=== PATIENT | female | born 1935 | race Asian ===

== ENCOUNTER 2017-10-17 13:41 | Inpatient (IN) | payer OTHER ==
--- NOTE | 2017-10-17 14:04 | EDPHY ---
H & P Time Seen by Provider: 10/17/17 14:04 HPI/ROS: CHIEF COMPLAINT: Shortness of breath HISTORY OF PRESENT ILLNESS: Patient started getting symptoms about a month ago with a cough and was treated by her primary care doctor in [place] with 10 days oral Levaquin. She finished this about 10 days or 2 weeks ago. Over last week she has been getting increasingly short of breath and only has a trace residual cough. Shortness of breath is not associated with chest pain or hemoptysis or leg swelling but is severe and she can't even go up a flight of stairs over the last couple of days without stopping every 1 or 2 steps. REVIEW OF SYSTEMS: Eye: no change in vision ENT: no sore throat Cardiac: no chest pain or syncope Pulmonary: HPI Abdomen: no vomiting, diarrhea, abdominal pain Musculoskeletal: Femur fracture in June, no new leg swelling Skin: no rash Neuro: no headache Constitutional: no fever : no urinary symptoms A comprehensive 10 point review of systems is otherwise negative aside from elements mentioned in the history of present illness. PAST MEDICAL HISTORY: Femur fracture as above, negative for pulmonary or cardiac disease Social history: Nonsmoker, here with daughter in-law, visiting from [place] General Appearance: Alert and conversant, cooperative. Eyes: No scleral icterus. ENT, Mouth: Normal mucous membranes. Respiratory: Right lower lung crackles. Cardiovascular: Regular rate and rhythm. Gastrointestinal: Abdomen is soft and non tender. Neurological: Alert, face symmetric, normal motor and sensory in extremities. Skin: Warm and dry, no rashes. Musculoskeletal: No peripheral edema. Psychiatric: Not agitated. Emergency Department course/MDM: Differential includes but not limited to CHF, pneumonia, PE, anemia. Plan for labs including CBC chemistry troponin D-dimer and BNP. EKG and chest x-ray. 1510: X-ray shows multi lobar pneumonia, plan for blood cultures and respiratory panel, IV fluids and antibiotics to include ceftriaxone 1 g and azithromycin 500 mg given recent quinolone use. Admission to hospital; 88% oxygen saturation on arrival, multi lobar pneumonia, severe dyspnea on exertion with inability to walk to the bathroom or up even a single flight of stairs at this time. 1604: Lactate 1.7, does not have severe sepsis or septic shock, admission to hospital med surg floor. 1844: CT chest personally reviewed and discussed with Dr. Mesa as moderate volume left lobe PE. CT was performed for elevated D-dimer. Lovenox 1 milligram/kilogram subcu; discussed with the patient at this time. 1906: discussed with Luisa the daughter in law on the phone with patient's permission. Smoking Status: Never smoked Constitutional: Initial Vital Signs Temperature (C) 36.4 C 10/17/17 13:49 Heart Rate 100 10/17/17 13:49 Respiratory Rate 24 H 10/17/17 13:49 Blood Pressure 134/91 H 10/17/17 13:49 O2 Sat (%) 88 L 10/17/17 13:49 O2 Delivery Mode Room Air Allergies/Adverse Reactions: No Known Allergies Allergy (Unverified 10/17/17 13:49) Home Medications: Medication Instructions Recorded Acetaminophen [Tylenol 325mg (*)] 975 mg PO DAILY PRN 10/17/17 Calcium Carb W/Vit D [Calcium Carb 500 mg PO BID 10/17/17 W/Vit D 500/200 (*)] Folic Acid 0.8 mg PO DAILY 10/17/17 Lisinopril [Zestril 10 mg (*)] 10 mg PO DAILY 10/17/17 Methotrexate Sodium [Rheumatrex] 2.5 mg PO MWF 10/17/17 Multivitamins [Multivitamin (*)] 1 each PO DAILY 10/17/17 Medical Decision Making - Diagnostics EKG Interpretation: 12-lead EKG interpreted by me; official reading is in trace master. My interpretation is sinus rhythm rate 87 no ischemic changes or LVH. Imaging Results: Imaging Impressions Chest X-Ray 10/17/17 14:17 Impression: Patchy multifocal bilateral pulmonary infiltrates suspicious for multifocal pneumonia.. Imaging: Discussed imaging studies w/ casing mixer Radiologist, I viewed and interpreted images myself Differential Diagnosis: Differential diagnosis considered for shortness of breath including but not limited to pulmonary infectious process, COPD, asthma, pulmonary embolus and congestive heart failure. Consult/Admit Bed Type: [place] [id number] - Data Points Laboratory Results: Laboratory Results 10/17/17 15:55 10/17/17 15:55 10/17/17 10/17/17 10/17/17 15:55 15:55 15:55 WBC RBC Hgb Hct MCV MCH MCHC RDW Plt Count MPV Neut % (Auto) Lymph % (Auto) Letcher % (Auto) Eos % (Auto) Baso % (Auto) Nucleat RBC Rel Count Absolute Neuts (auto) Absolute Lymphs (auto) Absolute Monos (auto) Absolute Eos (auto) Absolute Basos (auto) Absolute Nucleated RBC Immature Gran % Immature Gran # VBG Lactic Acid 1.7 mmol/L mmol/L (0.7-2.1) Sodium 140 mEq/L mEq/L (135-145) Potassium 3.9 mEq/L mEq/L (3.3-5.0) Chloride 106 mEq/L mEq/L (97-110) Carbon Dioxide 25 mEq/l mEq/l (22-31) Anion Gap 9 mEq/L mEq/L (8-16) BUN 15 mg/dL mg/dL (7-23) Creatinine 0.7 mg/dL mg/dL (0.6-1.0) Estimated GFR > 60 Glucose 76 mg/dL mg/dL (70-100) Calcium 8.7 mg/dL mg/dL (8.5-10.4) Total Bilirubin 0.5 mg/dL mg/dL (0.1-1.4) Troponin I < 0.012 ng/mL ng/mL (0.000-0.034) NT-Pro-B Natriuret Pep 367 pg/mL pg/mL (0-450) Procalcitonin 0.03 ng/mL ng/mL (0.02-0.10) 10/17/17 15:55 WBC 7.24 10^3/uL 10^3/uL (3.80-9.50) RBC 4.17 10^6/uL L 10^6/uL (4.18-5.33) Hgb 12.7 g/dL g/dL (12.6-16.3) Hct 39.8 % % (38.0-47.0) MCV 95.4 fL fL (81.5-99.8) MCH 30.5 pg pg (27.9-34.1) MCHC 31.9 g/dL L g/dL (32.4-36.7) RDW 16.7 % H % (11.5-15.2) Plt Count 245 10^3/uL 10^3/uL (150-400) MPV 8.9 fL fL (8.7-11.7) Neut % (Auto) 70.5 % % (39.3-74.2) Lymph % (Auto) 16.3 % % (15.0-45.0) Letcher % (Auto) 10.8 % % (4.5-13.0) Eos % (Auto) 1.7 % % (0.6-7.6) Baso % (Auto) 0.4 % % (0.3-1.7) Nucleat RBC Rel Count 0.0 % % (0.0-0.2) Absolute Neuts (auto) 5.11 10^3/uL 10^3/uL (1.70-6.50) Absolute Lymphs (auto) 1.18 10^3/uL 10^3/uL (1.00-3.00) Absolute Monos (auto) 0.78 10^3/uL 10^3/uL (0.30-0.80) Absolute Eos (auto) 0.12 10^3/uL 10^3/uL (0.03-0.40) Absolute Basos (auto) 0.03 10^3/uL 10^3/uL (0.02-0.10) Absolute Nucleated RBC 0.00 10^3/uL 10^3/uL (0-0.01) Immature Gran % 0.3 % % (0.0-1.1) Immature Gran # 0.02 10^3/uL 10^3/uL (0.00-0.10) VBG Lactic Acid Sodium Potassium Chloride Carbon Dioxide Anion Gap BUN Creatinine Estimated GFR Glucose Calcium Total Bilirubin Troponin I NT-Pro-B Natriuret Pep Procalcitonin Medications Given: Discontinued Medications Enoxaparin Sodium (Lovenox) 60 mg SC EDNOW ONE Stop: 10/17/17 18:45 Last Admin: 10/17/17 18:58 Dose: 60 mg Azithromycin 500 mg/ Dextrose 255 mls @ 255 mls/hr IV EDNOW ONE PRN Reason: Protocol Stop: 10/17/17 16:09 Last Admin: 10/17/17 16:50 Dose: 255 mls Ceftriaxone Sodium/Dextrose (Rocephin 1 Gm (Premix)) 50 mls @ 100 mls/hr IV EDNOW ONE PRN Reason: Protocol Stop: 10/17/17 15:39 Last Admin: 10/17/17 16:23 Dose: 50 mls Sodium Chloride (Ns) 1,600 mls @ 3,200 mls/hr 30 ml/kg infuse over 30 min ( 1600 ml) IV EDNOW ONE PRN Reason: Protocol Stop: 10/17/17 15:39 Last Admin: 10/17/17 15:10 Dose: 1,600 mls Labetalol HCl (Trandate Injection) 10 mg IVP ONCE ONE Stop: 10/17/17 17:28 Last Admin: 10/17/17 17:48 Dose: 10 mg Departure - Departure Disposition: [facility] Inpatient Acute Clinical Impression: Pneumonia Qualifiers: Pneumonia type: due to unspecified organism Laterality: bilateral Lung location : unspecified part of lung Qualified Code(s): J18.9 - Pneumonia, unspecified organism Pulmonary embolism Qualifiers: Pulmonary embolism type: other Chronicity: acute Acute cor pulmonale presence: without acute cor pulmonale Qualified Code(s): I26.99 - Other pulmonary embolism without acute cor pulmonale Condition: Good
--- NOTE | 2017-10-17 14:14 | CPEKG ---
Heart Rate: 87 RR Interval: 690 P-R Interval: 168 QRSD Interval: 72 QT Interval: 372 QTC Interval: 448 P Harvard: 36 QRS Harvard: 6 T Wave Harvard: 52 EKG Severity - NORMAL ECG - EKG Impression: SINUS RHYTHM Electronically Signed By: Fco Decker 17-Oct-2017 14:18:45
[2017-10-17] MEDS ORDERED: NS 1,600 ML IV ONE (15:10)
[2017-10-17] MEDS ORDERED: AZITHROMYCIN IV 500 MG in D5W 250 ML IV ONE (15:10)
[2017-10-17 16:01] LABS: PLATELET COUNT 245 10^3/uL (150-400)
[2017-10-17] MEDS ORDERED: ONDANSETRON DISINTEGRATING 4 MG TAB PO PRN (17:04)
[2017-10-17] MEDS ORDERED: ALBUTEROL 3 ML DEYVIAL IH PRN (17:04)
[2017-10-17] MEDS ORDERED: ACETAMINOPHEN 325 MG TAB PO PRN (17:04)
[2017-10-17] MEDS ORDERED: ONDANSETRON 4 MG/2 ML VIAL IVP PRN (17:04)
--- NOTE | 2017-10-17 17:14 | PDGENHP ---
History and Physical - Chief Complaint cough, recent pneumonia - History of Present Illness 82 yo female with h/o recent treatment for pneumonia presents to ED with worsening shortness of breath. Her cough started 4 weeks ago and she had subjective fevers. She saw her doctor in [place] and took Levaquin 750 mg daily for 10 days. She feels her cough got much better, but she then developed shortness of breath. She notes the breathing got worse about a week ago. She arrived in [place] from [facility] 3 days ago. She thinks her symptoms were worse yesterday with increased SOB and TORRE. No more fevers. She had a femur fracture in 06/2017 which required surgery. She uses a cane and a walker. She is mildly hypoxemic on arrival. She was given IV Ceftriaxone and Azithromycin in the ED for pneumonia, presumed failed treatment with Levaquin. She is admitted to the hospital for further management. History Information - Allergies/Home Medication List Allergies/Adverse Reactions: No Known Allergies Allergy (Unverified 10/17/17 13:49) Home Medications: Acetaminophen [Tylenol 325mg (*)] 975 mg PO DAILY PRN 10/17/17 [Last Taken 10/15] Calcium Carb W/Vit D [Calcium Carb W/Vit D 500/200 (*)] 500 mg PO BID 10/17/17 [ Last Taken 10/17/17] Folic Acid 0.8 mg PO DAILY 10/17/17 [Last Taken 10/16/17] Lisinopril [Zestril 10 mg (*)] 10 mg PO DAILY 10/17/17 [Last Taken 10/10/17] Methotrexate Sodium [Rheumatrex] 2.5 mg PO MWF 10/17/17 [Last Taken 10/01/17] Multivitamins [Multivitamin (*)] 1 each PO DAILY 10/17/17 [Last Taken 10/17/17] I have personally reviewed and updated: family history, medical history, social history, surgical history - Past Medical History Additional medical history: Rheumatoid arthritis. Hypertension - Surgical History Additional surgical history: Recent hip fracture repair - Family History Positive for: non-pertinent - Social History Smoking Status: Never smoked Alcohol Use: None Drug Use: None Additional social history: Lives in [place]. Visiting son in [place], daughter in law present at bedside. Review of Systems Review of Systems: ROS: 10pt was reviewed & negative except for what was stated in HPI & below Physical Exam Physical Exam: Temp Pulse Resp BP Pulse Ox 36.4 C 100 24 H 134/91 H 88 L 10/17/17 13:49 10/17/17 13:49 10/17/17 13:49 10/17/17 13:49 10/17/17 13:49 Constitutional: no apparent distress Eyes: PERRL Ears, Nose, Mouth, Throat: moist mucous membranes Cardiovascular: regular rate and rhythym Respiratory: no respiratory distress, clear to auscultation Gastrointestinal: normoactive bowel sounds, soft, non-tender abdomen Skin: warm Musculoskeletal: full muscle strength Neurologic: AAOx3 Psychiatric: interacting appropriately Lab Data & Imaging Review 10/17/17 15:55 10/17/17 15:55 WBC 7.24 10^3/uL (3.80-9.50) 10/17/17 15:55 RBC 4.17 10^6/uL (4.18-5.33) L 10/17/17 15:55 Hgb 12.7 g/dL (12.6-16.3) 10/17/17 15:55 Hct 39.8 % (38.0-47.0) 10/17/17 15:55 MCV 95.4 fL (81.5-99.8) 10/17/17 15:55 MCH 30.5 pg (27.9-34.1) 10/17/17 15:55 MCHC 31.9 g/dL (32.4-36.7) L 10/17/17 15:55 RDW 16.7 % (11.5-15.2) H 10/17/17 15:55 Plt Count 245 10^3/uL (150-400) 10/17/17 15:55 MPV 8.9 fL (8.7-11.7) 10/17/17 15:55 Neut % (Auto) 70.5 % (39.3-74.2) 10/17/17 15:55 Lymph % (Auto) 16.3 % (15.0-45.0) 10/17/17 15:55 Phelps % (Auto) 10.8 % (4.5-13.0) 10/17/17 15:55 Eos % (Auto) 1.7 % (0.6-7.6) 10/17/17 15:55 Baso % (Auto) 0.4 % (0.3-1.7) 10/17/17 15:55 Nucleat RBC Rel Count 0.0 % (0.0-0.2) 10/17/17 15:55 Absolute Neuts (auto) 5.11 10^3/uL (1.70-6.50) 10/17/17 15:55 Absolute Lymphs (auto) 1.18 10^3/uL (1.00-3.00) 10/17/17 15:55 Absolute Monos (auto) 0.78 10^3/uL (0.30-0.80) 10/17/17 15:55 Absolute Eos (auto) 0.12 10^3/uL (0.03-0.40) 10/17/17 15:55 Absolute Basos (auto) 0.03 10^3/uL (0.02-0.10) 10/17/17 15:55 Absolute Nucleated RBC 0.00 10^3/uL (0-0.01) 10/17/17 15:55 Immature Gran % 0.3 % (0.0-1.1) 10/17/17 15:55 Immature Gran # 0.02 10^3/uL (0.00-0.10) 10/17/17 15:55 VBG Lactic Acid 1.7 mmol/L (0.7-2.1) 10/17/17 15:55 Sodium 140 mEq/L (135-145) 10/17/17 15:55 Potassium 3.9 mEq/L (3.3-5.0) 10/17/17 15:55 Chloride 106 mEq/L (97-110) 10/17/17 15:55 Carbon Dioxide 25 mEq/l (22-31) 10/17/17 15:55 Anion Gap 9 mEq/L (8-16) 10/17/17 15:55 BUN 15 mg/dL (7-23) 10/17/17 15:55 Creatinine 0.7 mg/dL (0.6-1.0) 10/17/17 15:55 Estimated GFR > 60 10/17/17 15:55 Glucose 76 mg/dL (70-100) 10/17/17 15:55 Calcium 8.7 mg/dL (8.5-10.4) 10/17/17 15:55 Total Bilirubin 0.5 mg/dL (0.1-1.4) 10/17/17 15:55 Troponin I < 0.012 ng/mL (0.000-0.034) 10/17/17 15:55 NT-Pro-B Natriuret Pep 367 pg/mL (0-450) 10/17/17 15:55 Visualized and Interpreted Chest x-ray results: Yes Chest X-Ray results: other (infiltrate vs pulmonary infarct) Visualized and Interpreted EKG results: Yes EKG Interpretation: Positive for: normal sinsus rhythm Assessment & Plan Assessment: Acute hypoxemic respiratory failure - 2/2 PE. Note recent tx for PNA completed ~2 weeks ago, now with increased SOB and TORRE after travel from [place]. Nl wbc's, afebrile. CXR reviewed, +multifocal infiltrates. -CTA now to r/o PE, study is positive for moderate volume PE- Lovenox 1 mg/ kg BID. Likely provoked with recent surgery and travel. -PCT neg, may have pulmonary infarct. Will defer further atbx for now -consider pulm consult given MTX use and persistent pulmonary infiltrates -wean O2 as able Hypertension - SBP 130's on arrival, though spiked to >200. She is asymptomatic. -IV Labetalol now, prn hydralazine -resume home lisinopril, up-titrate as indicated RA - holding MTX while sorting out infectious issues. MTX increase her risk for opportunistic infections. Full code DVT PPLX - Lovenox Dispo - admit to inpt status, anticipate >48 hrs hospitalization for ongoing management of hypoxemia and SOB
[2017-10-17 17:27] LABS: INR 1.02 (0.83-1.16); PROTIME(PATIENT) 13.6 SEC (12.0-15.0)
[2017-10-17] MEDS ORDERED: LABETALOL HCL 5 MG/ML 20 ML MDV IVP ONE (17:27)
[2017-10-17] MEDS ORDERED: hydrALAZINE 10 MG TAB PO PRN (17:27)
[2017-10-17] MEDS ORDERED: IOPAMIDOL (ISOVUE 370) 100 ML BTL IV ONE (17:44)
[2017-10-17] MEDS ORDERED: ENOXAPARIN 60 MG/0.6 ML SYR SC ONE (18:44)
[2017-10-18] MEDS ORDERED: ENOXAPARIN 60 MG/0.6 ML SYR SC SCH (06:00)
[2017-10-18 08:22] VITALS: BP 114/66
[2017-10-18] MEDS ORDERED: LISINOPRIL 10 MG TAB PO SCH (09:00)
[2017-10-18] MEDS ORDERED: ENOXAPARIN 40 MG/0.4 ML SYR SC SCH (09:00)
[2017-10-18] MEDS ORDERED: AZITHROMYCIN IV 500 MG in NS 250 ML IV SCH (09:00)
--- NOTE | 2017-10-18 14:32 | GDS ---
[f rep st] DISCHARGE SUMMARY DISCHARGE DIAGNOSES: 1. Acute hypoxemic respiratory failure. 2. Pulmonary emboli. 3. Hypertension. 4. History of rheumatoid arthritis. STUDIES AND PROCEDURES DONE: CT angio. PHYSICAL EXAM: GENERAL: The patient is alert. VITAL SIGNS: Afebrile at 36.7, pulse is 90, respira tory rate is 18, blood pressure is 114/66. She is saturating 92% on room air. I have seen and evalu ated the patient on the day of discharge. HOSPITAL COURSE: The patient, 82-year-old female visiting from [place], presents to the emergency room with complaints of shortness of breath. She was evaluated and diagnosed with. 1. Pulmonary emboli. During this hospitalization, she has received a CT angio with noted pulmonary emboli. She has been initiated on Lovenox 1 mg/kg b.i.d. She has received education regarding jennifer nuing these injections in the outpatient setting. She has also been initiated on Coumadin. She was supposed to return to [place] on 11/01/2017. In the meantime, her INR will be evaluated at a local laboratory where her primary care physician will receive the results and manage her care from [facility]. She is saturating appropriately on room air. She says she feels less short of breath. She has no chest pain. Her vital signs are within normal limits and she will follow in the outpatient [facility]. 2. Hypertension. This is stable at the time of disposition. Her medications have not been adjusted . 3. History of rheumatoid arthritis. The patient is on methotrexate. This has been held at this [facility]. 4. Abnormal pulmonary infiltrates. I have discussed this with the patient. She will follow up in [facility] outpatient setting with her primary care physician for further CT scans to further diagnosis her p ulmonary infiltrate. It does not appear to be infectious in nature at this time. May be drug relate d or other etiology secondary to her pulmonary emboli or other source. Again, she will follow with h primary care physician. DISPOSITION: The patient will be discharged home with her family independently. Pending studies inc luding urine Legionella, as well as strep pneumoniae. I spent greater than 35 minutes in the care, coordination, and management of this patient's dispositi on. DISCHARGE MEDICATIONS: Please refer to EMR form. I have provided prescriptions for lisinopril, as w ell as Coumadin and Lovenox for the patient prior to disposition. I have also provided a laboratory slip for her to have her INR drawn on October 22, 2017, with results sent to her primary care physician f or further followup recommendations. I have discussed this with the patient's nurse, as well as Case Management. /[id number]/MODL
--- NOTE | 2017-10-19 04:52 | PDMN ---
Medical Necessity Medical necessity: Pt meets INPT criteria per MD and [facility] M-290 Pulmonary Embolism (acute thrombopulmonary embolic disease with multifocal infiltrates, acute hypoxemic respiratory failure - O2 sat 88% on RA, hypertension with SBP spike to >200 requiring IV Labetalol, RA on MTX).
== END 2017-10-18 13:30 | disposition home or self-care (01) | DRG 175 ==
LOC: F3E 19:35
PROVIDERS: ADMIT Hospitalist; ATTEND Hospitalist
DX: I26.99 Other pulmonary embolism without acute cor pulmonale (principal); J96.01 Acute respiratory failure with hypoxia; I10 Essential (primary) hypertension; M06.9 Rheumatoid arthritis, unspecified; Z87.01 Personal history of pneumonia (recurrent); Z87.81 Personal history of (healed) traumatic fracture
CPT/HCPCS: 87449-90; 92610-GN; 96365; 97161-GP; J0456; J0696; J1650; Q9967